=== PATIENT | male | born 1960 | race Caucasian/White ===

== ENCOUNTER 2018-10-29 11:37 | Emergency (ER) | payer OTHER ==
[2018-10-29 11:51] VITALS: RESP 16
[2018-10-29] MEDS ORDERED: DIPH,PERTUS(ACELL)TETVAC-LF 0.5 ML VIAL IM ONE (12:13)
--- NOTE | 2018-10-29 12:17 | ED ---
Head Injury HPI - General Chief complaint: Head Injury Stated complaint: head lac-[facility] Time Seen by Provider: 10/29/18 12:04 Source: patient Mode of arrival: ambulatory Limitations: no limitations - History of Present Illness Initial comments: This patient is 58-year-old man who presents with the complaint that he has a laceration to his face. The patient states he had been at work this morning little after 9:30, when a metal bar struck him in the face. He noticed that there was some bleeding and a laceration. Patient states there was initially so me minor pain he has no pain now. He did not have any loss of consciousness. He is not having any other symptoms. MD Complaint: head injury Onset/Timin -: hour(s) Mechanism of Injury: work related injury Location: frontal Loss of Consciousness: no Previous Trauma to this Area: No Place: work Severity scale (1-10): 0 Consistency: now resolved Other Injuries: laceration Associated Symptoms: denies other symptoms - Related Data Home Medications Medication Instructions Recorded Confirmed Aspirin EC [Ecotrin Low Dose] 81 mg PO DAILY 10/29/18 10/29/18 Allergies/Adverse reactions: Allergies Allergy/AdvReac Type Severity Reaction Status Date / Time No Known Allergies Allergy Verified 10/29/18 12:02 Review of Systems ROS Statement: Those systems with pertinent positive or pertinent negative responses have been documented in the HPI. ROS Other: All systems not noted in ROS Statement are negative. Eyes: Denies: eye pain, vision change ENT: Denies: epistaxis, congestion Skin: Reports: other (Laceration) Neurological: Denies: headache, weakness, numbness, paresthesias, confusion, abnormal gait, vertigo Hematological/Lymphatic: Denies: easy bleeding Past Medical History Past Medical History: No Reported History History of Any Multi-Drug Resistant Organisms: None Reported Past Surgical History: No Surgical Hx Reported Past Psychological History: No Psychological Hx Reported Smoking Status: Never smoker Past Alcohol Use History: Daily Past Drug Use History: None Reported General Exam Limitations: no limitations General appearance: alert, in no apparent distress Head exam: Present: normocephalic, other (The patient does have a stellate laceration totaling approximately 3-4 cm to the forehead. No bony tenderness or deformity.) Eye exam: Present: normal appearance, PERRL, EOMI. Absent: scleral icterus, conjunctival injection, nystagmus Neck exam: Present: full ROM. Absent: tenderness Skin exam: Present: warm, dry, normal color, other (Laceration). Absent: rash Course Vital Signs 10/29/18 11:47 Temperature 98 F Pulse Rate 73 Respiratory 16 Rate Blood Pressure 145/89 O2 Sat by Pulse 95 Oximetry Disposition Clinical Impression: Facial laceration Disposition: HOME SELF-CARE Condition: Good Instructions (If sedation given, give patient instructions): Facial Laceration (ED) Is patient prescribed a controlled substance at d/c from ED?: No Referrals: None,Stated [Primary Care Provider] - 1-2 days
[2018-10-29] MEDS ORDERED: LIDOCAINE 1% INJ 10MG/ML (20 ML MDV) SQ ONE (12:25)
[2018-10-29 14:00] VITALS: BP 170/112; PULSE 74; TEMP 97.4
== END 2018-10-29 14:07 | disposition home or self-care (01) ==
LOC: EC 11:37
DX: S01.81XA Laceration without foreign body of other part of head, initial encounter (principal); Z79.82 Long term (current) use of aspirin; W22.8XXA Striking against or struck by other objects, initial encounter; Y92.69 Other specified industrial and construction area as the place of occurrence of the external cause; Y99.0 Civilian activity done for income or pay; Z23 Encounter for immunization
CPT/HCPCS: 90715; 99283; 12013; 90471; J2001